=== PATIENT | female | born 1990 | race Caucasian/White ===

== ENCOUNTER 2024-09-11 20:00 | Emergency (ER) | payer OTHER ==
[~2024-09-11] VITALS: Ht 167.6 cm; Wt 95.7 kg
[2024-09-11] MEDS ORDERED: ondansetron HCL 4 MG/2 ML VIAL IV ONE (20:15)
[2024-09-11 20:20] LABS: BILIRUBIN, URINE POSITIVE (negative); BLOOD/HGB, URINE NEGATIVE (Negative); KETONE, URINE SMALL (Negative); LEUK ESTERASE, URINE NEGATIVE (negative); NITRITE, URINE NEGATIVE (negative); PH, URINE 5.5 (5-7)
[2024-09-11 20:21] LABS: BASOPHILS 0.1 % (0-2); EOSINOPHILS 0.4 % (0-6); HEMATOCRIT 42.6 % (35.0-50.0); HEMOGLOBIN 14.8 g/dL (12.0-18.0); MCH 32.7 (27-36); MCHC 34.7 g/dl (30-36); MCV 94.3 fl (81-99); MONOCYTES 4.7 % (0-12); NEUTROPHILS 86.8 % (39-80); PLATELET COUNT 342 K/uL (140-440); RBC 4.51 M/ul (4.3-5.7)
[2024-09-11 20:25] LABS: BACTERIA, URINE 2+ /hpf (negative); CRYSTALS, URINE NONE SEEN (0-1+); EPITHELIAL CELLS, URINE SQUAMOUS 3+ /lpf (0-1+)
[2024-09-11 20:26] LABS: CASTS, URINE NONE SEEN \\lpf; COLLECTION TYPE, URINE CLEAN CATCH; REFLEX CULTURE, URINE No (No)
[2024-09-11] MEDS ORDERED: SODIUM CHLORIDE 0.9% 1,000 ML IV PRN (20:30)
[2024-09-11 20:40] LABS: ALBUMIN 4.5 g/dL (3.4-5.0); ALBUMIN/GLOBULIN RATIO 1.07 (1.1-2.4); BILIRUBIN, TOTAL 0.6 ng/dL (0.2-1.0); BUN/CREATININE RATIO 15.21 (6.0-28.6); CALCIUM 9.5 mg/dL (8.5-10.1); CREATININE, SERUM 0.92 mg/dL (0.55-1.02); PROTEIN, TOTAL 8.7 g/dL (6.4-8.2)
[2024-09-11] MEDS ORDERED: LOMOTIL TABLET1 EACH PO (22:12)
[2024-09-11] MEDS ORDERED: ONDANSETRON ODT8 MG PO (22:12)
[2024-09-11] MEDS ORDERED: ONDANSETRON 4 MG HOME.PACK SL ONE (22:15)
[2024-09-11] MEDS ORDERED: DIPHENOXYLATE/ATROPINE 1 EA TAB PO ONE (22:15)
[2024-09-11 22:28] VITALS: BP 114/74
[2024-09-13 13:20] LABS: HEPATITIS A ANTIBODY, IGM Negative (Negative); HEPATITIS B CORE ANTIBODY, IGM Negative (Negative); HEPATITIS B SURFACE ANTIGEN Negative (Negative); HEPATITIS C AB CIA INTERP Negative (Negative); HEPATITIS C ANTIBODY CIA INDEX 0.12 IV (())
== END 2024-09-11 22:29 | disposition home or self-care (01) ==
LOC: ED 20:00
PROVIDERS: Family Medicine
DX: A08.4 Viral intestinal infection, unspecified (principal)
CPT/HCPCS: 36415; 76705; 80053; 80074; 81001; 83690; 83735; 84703; 85025; 96361; 96374; 99284-25; A9270; J2405; J7030